=== PATIENT | female | born 1985 | race Asian ===

== ENCOUNTER 2018-09-08 21:44 | Emergency (ER) | payer OTHER ==
[~2018-09-08] VITALS: Ht 152.4 cm; Wt 43.1 kg
[2018-09-08 22:03] VITALS: BP 119/75
[2018-09-08] MEDS ORDERED: IBUPROFEN600 MG ORAL (22:07)
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
[2018-09-08 22:57] VITALS: BP 117/73
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
== END 2018-09-08 22:57 | disposition home or self-care (01) ==
LOC: EMR 22:39 → CANBEDREQ 23:00
DX: S09.90XA Unspecified injury of head, initial encounter (principal); S39.012A Strain of muscle, fascia and tendon of lower back, initial encounter; R11.0 Nausea; R42 Dizziness and giddiness; R51 Headache; Z88.5 Allergy status to narcotic agent; V43.52XA Car driver injured in collision with other type car in traffic accident, initial encounter; Y92.411 Interstate highway as the place of occurrence of the external cause
CPT/HCPCS: 70450; 72020; 99284